=== PATIENT | male | born 1990 | race African-American/Black ===

== ENCOUNTER 2020-01-10 09:21 | Day surgery (SDC) | payer BC ==
[~2020-01-10 09:21] MED LIST: Lactated Ringers 1,000 ML IV SCH; Sodium Chloride 0.9% 10 ML SDV IV PRN; Sodium Chloride 0.9% 10 ML Syringe FLUSH PRN; Sodium Chloride 0.9% 2.5 ML Syringe FLUSH PRN; ceFAZolin 1 GM in Premix Bag 1 BAG IV ONE
--- NOTE | 2020-01-10 10:12 | PCM.PREANE ---
Preanesthetic Assessment - Anesthesia/Transfusion/Family Hx Anesthesia History: Prior Anesthesia Without Reaction Family History of Anesthesia Reaction: No Transfusion History: No Prior Transfusion(s) Intubation History: Unknown - Review of Systems General: No Symptoms Pulmonary: No Symptoms Cardiovascular: No Symptoms Gastrointestinal: No Symptoms Neurological: No Symptoms Other: Reports: None - Physical Assessment Height: 6 ft Weight: 95.708 kg ASA Class: 1 Mental Status: Alert & Oriented x3 Airway Class: Mallampati = 1 Dentition: Reports: Normal Dentition Thyro-Mental Finger Breadths: 3 Mouth Opening Finger Breadths: 3 ROM/Head Extension: Full Lungs: Clear to Auscultation, Normal Respiratory Effort Cardiovascular: Regular Rate, Regular Rhythm - Allergies Allergies/Adverse Reactions: Allergies Allergy/AdvReac Type Severity Reaction Status Date / Time No Known Allergies Allergy Verified 01/09/20 13:55 - Blood Blood Available: No - Anesthesia Plan Pre-Op Medication Ordered: None - Acknowledgements Anesthesia Type Planned: General Anesthesia Pt an Appropriate Candidate for the Planned Anesthesia: Yes Alternatives and Risks of Anesthesia Discussed w Pt/Guardian: Yes Pt/Guardian Understands and Agrees with Anesthesia Plan: Yes PreAnesthesia Questionnaire HEENT History: Reports: None Cardiovascular History: Reports: None Respiratory History: Reports: None Gastrointestinal History: Reports: None Genitourinary History: Reports: Renal Calculus, Other (See Below) Other Genitourinary History: c/o urinary frequency Musculoskeletal History: Reports: None Neurological History: Reports: None Psychiatric History: Reports: Anxiety, Depression Endocrine/Metabolic History: Reports: None Hematologic History: Reports: None Immunologic History: Reports: None Oncologic (Cancer) History: Reports: None Dermatologic History: Reports: None - Past Surgical History Head Surgeries/Procedures: Reports: None HEENT Surgical History: Reports: None Cardiovascular Surgical History: Reports: None Respiratory Surgical History: Reports: None GI Surgical History: Reports: None Other Male Surgeries/Procedures: previous cysto with biopsies- more than 2 years ago in OR Endocrine Surgical History: Reports: None Neurological Surgical History: Reports: None Musculoskeletal Surgical History: Reports: None Oncologic Surgical History: Reports: None Dermatological Surgical History: Reports: None - SUBSTANCE USE Smoking Status *Q: Former Smoker - HOME MEDS Home Medications: Home Meds . [No Known Home Meds] 01/09/20 [History] - CURRENT (IN HOUSE) MEDS Current Meds: Current Medications Lactated Ringer's (Ringers, Lactated) 1,000 mls @ 100 mls/hr IV ASDIRECTED DEO Sodium Chloride (Saline Flush) 10 ml FLUSH ASDIRECTED PRN PRN Reason: Keep Vein Open Sodium Chloride (Saline Flush) 2.5 ml FLUSH ASDIRECTED PRN PRN Reason: Keep Vein Open Sodium Chloride (Normal Saline) 10 ml IV ASDIRECTED PRN PRN Reason: IV Use Discontinued Medications Cefazolin Sodium/Dextrose 1 gm (/ Premix) 50 mls @ 100 mls/hr IV ONCALL ONE Stop: 01/10/20 00:30
[2020-01-10] MEDS ORDERED: Ondansetron 4 MG/2 ML SDV ONE ×2 (10:50→11:30)
[2020-01-10] MEDS ORDERED: Lidocaine 2% 5 ML SDV ONE (10:50)
[2020-01-10] MEDS ORDERED: Propofol 200 MG/20 ML SDV ONE (10:50)
[2020-01-10] MEDS ORDERED: fentaNYL 100 MCG/2 ML SDV ONE (10:51)
[2020-01-10] MEDS ORDERED: Midazolam 1 MG/ML 2 ML SDV ONE (10:51)
[2020-01-10] MEDS ORDERED: Iopamidol 408 MG/ML 50 ML SDV ONE (11:12)
[2020-01-10] MEDS ORDERED: Ketorolac 30 MG/ML SDV ONE (11:31)
--- NOTE | 2020-01-10 12:30 | PCM48HPAN ---
Post Anesthesia Note - EVALUATION WITHIN 48HRS OF ANESTHETIC Vital Signs in Normal Range: Yes Patient Participated in Evaluation: Yes Respiratory Function Stable: Yes Airway Patent: Yes Cardiovascular Function Stable: Yes Hydration Status Stable: Yes Pain Control Satisfactory: Yes Nausea and Vomiting Control Satisfactory: Yes Mental Status Recovered: Yes Vital Signs: Last Vital Signs Temp 36.2 C 01/10/20 12:20 Pulse 56 L 01/10/20 12:20 Resp 16 01/10/20 12:20 BP 116/66 01/10/20 12:20 Pulse Ox 100 01/10/20 12:20 - COMMENTS/OBSERVATIONS Free Text/Narrative:: No anesthesia problems
--- NOTE | 2020-01-10 12:30 | PCM.POSTAN ---
POST ANESTHESIA ASSESSMENT - MENTAL STATUS Mental Status: Alert, Oriented - VITAL SIGNS Vital Signs: Last Vital Signs Temp 36.2 C 01/10/20 12:20 Pulse 56 L 01/10/20 12:20 Resp 16 01/10/20 12:20 BP 116/66 01/10/20 12:20 Pulse Ox 100 01/10/20 12:20 - RESPIRATORY Respiratory Status: Respiratory Rate WNL, Airway Patent, O2 Saturation Stable - CARDIOVASCULAR CV Status: Pulse Rate WNL, Blood Pressure Stable - GASTROINTESTINAL GI Status: No Symptoms - POST OP HYDRATION Hydration Status: Adequate & Stable - OBSERVATIONS Free Text/Narrative:: No anesthesia problems
--- NOTE | 2020-01-10 12:37 | OR ---
SURGEON: Tiffany Aranda M.D. DATE OF PROCEDURE: 01/10/2020 PREOPERATIVE DIAGNOSIS: Urinary frequency. POSTOPERATIVE DIAGNOSIS: Urinary frequency. OPERATION: Cystoscopy. FINDINGS: Normal bladder, normal urethra, normal prostate exam. DESCRIPTION OF PROCEDURE: The patient was given general anesthesia. He was in dorsal lithotomy position, prepped and draped in sterile drapes. Cystourethroscopy was done. The urethra was normal in its entirety. The inside of bladder was normal. No lesions, no tumors, no unusual features. Rectal exam was done at the end and that was normal. With that done, the procedure was terminated. The bladder was emptied, and the patient was moved to recovery room in good condition. BILLY / ROME /[id number]
== END 2020-01-10 12:48 | disposition home or self-care (01) ==
LOC: MW.SDS 09:21
PROVIDERS: ATTEND Urology
DX: R35.0 Frequency of micturition (principal); Z87.891 Personal history of nicotine dependence
CPT/HCPCS: 52000; J1885; J2001; J2250; J2405; J2704; J3010; J7120; Q9966